=== PATIENT | female | born 1985 | race Caucasian/White ===

== ENCOUNTER 2017-04-05 11:57 | Emergency (ER) | payer MEDICAID ==
[~2017-04-05] VITALS: Ht 162.6 cm; Wt 80.0 kg
[~2017-04-05 11:57] MED LIST: VITAMINS
[2017-04-05 11:59] VITALS: Ht 162.6 cm; Wt 80.0 kg
[2017-04-05] MEDS ORDERED: SOD CHLORIDE 0.9% 500 ML IV STA (12:21)
[2017-04-05] MEDS ORDERED: ACETAMINOPHEN 325 MG TAB PO STA (12:21)
[2017-04-05] MEDS ORDERED: morphine 2 MG INJ IV STA (12:35)
--- NOTE | 2017-04-05 12:37 | ERD ---
ER Documentation Chief Complaint Chief Complaint VAG BLEED ONSET TODAY WITH PELVIC PAIN , 11 WEEKS PREG HPI 31-year-old female, at 11 weeks by LMP 01/07/17, presents to the emergency department complaining of progressive onset of severe dysuria that is started this morning associated with hematuria and urinary frequency. The patient denies abdominal pain, no vaginal bleeding, no fever, no chills. Adequate care at [facility]. ROS A 12-point review of systems was performed and negative other than presented in the history of present illness. SYSTEMIC symptoms: no fever, chills, no night sweats, no weight loss EYE symptoms: No blurred vision, no eye discharge OTOLARYNGEAL symptoms: No hearing loss. No ear pain, no sore throat CARDIOVASCULAR symptoms: No chest pain or discomfort, no palpitations. PULMONARY symptoms: No dyspnea, no cough, no wheezing. GASTROINTESTINAL symptoms: No abdominal pain, no nausea, no vomiting, no diarrhea MUSCULOSKELETAL symptoms: No arthralgias, no muscle aches. NEUROLOGY symptoms: No confusion, no syncope, no numbness or tingling. SKIN: No rashes Medications Home Meds Active Scripts Nitrofurantoin Monohyd Macrocr* (Macrobid*) 100 Mg Capsr, 100 MG PO BID for 7 Days, #14 CAP Prov:MIRTHA GAONA MD 04/05/17 Reported Medications [Vitamins] No Conflict Check 09/29/12 Allergies Allergies: Coded Allergies: No Known Allergies (Verified Allergy, 02/24/13) Uncoded Allergies: NONE (Allergy, 09/29/12) PMhx/Soc History of Surgery: Yes () Anesthesia Reaction: No Hx Neurological Disorder: No Hx Respiratory Disorders: No Hx Cardiac Disorders: No Hx Psychiatric Problems: No Hx Miscellaneous Medical Probl: No Hx Alcohol Use: No Hx Substance Use: No Hx Tobacco Use: No Physical Exam Vitals Vital Signs Date Time Temp Pulse Resp B/P Pulse Ox O2 Delivery O2 Flow Rate FiO2 04/05/17 11:59 99.4 116 18 143/76 98 Physical Exam Patient is in distress due to pain, vital signs consistent with tachycardia and temperature of 99.6. Alert and fully oriented. EYES: PERRLA, EOMI, Sclera and conjunctiva appear normal. EARS: Canals clear, tympanic membranes WNL THROAT: Normal oropharynx. NECK: Supple, No lymphadenopathy. Full ROM without pain or tenderness. HEART: RRR, no rubs, murmurs, clicks or gallops. LUNGS: Clear to auscultation. ABDOMEN: Soft, non-tender without masses or hepatosplenomegaly. No CVA tenderness EXTREMITIES: No edema bilaterally. BACK: Full ROM, no deformity, normal back exam NEURO: Cranial nerves grossly intact, no motor or sensory deficit Result Diagram: 04/05/17 1230 04/05/17 1230 Results 24 hrs Laboratory Tests Test 04/05/17 12:30 04/05/17 12:50 White Blood Count 12.210^3/ul Red Blood Count 4.4110^6/ul Hemoglobin 13.3g/dl Hematocrit 38.3% Mean Corpuscular Volume 86.8fl Mean Corpuscular Hemoglobin 30.2pg Mean Corpuscular Hemoglobin Concent 34.7g/dl Red Cell Distribution Width 13.6% Platelet Count 00147^3/UL Mean Platelet Volume 9.1fl Neutrophils % 78.9% Lymphocytes % 12.0% Monocytes % 7.9% Eosinophils % 0.3% Basophils % 0.5% Nucleated Red Blood Cells % 0.0/100WBC Neutrophils # 9.610^3/ul Lymphocytes # 1.510^3/ul Monocytes # 1.010^3/ul Eosinophils # 0.010^3/ul Basophils # 0.110^3/ul Nucleated Red Blood Cells # 0.010^3/ul Sodium Level 138mmol/L Potassium Level 4.3mmol/L Chloride Level 104mmol/L Carbon Dioxide Level 23mmol/L Anion Gap 15 Blood Urea Nitrogen 8mg/dl Creatinine 0.57mg/dl Glucose Level 99mg/dl Calcium Level 9.3mg/dl Beta HCG, Quantitative 91935.0mIU/ml Urine Color RED Urine Clarity HAZY Urine pH 7.0 Urine Specific [place] 1.020 Urine Ketones TRACEmg/dL Urine Nitrite NEGATIVEmg/dL Urine Bilirubin 1+mg/dL Urine Urobilinogen 1.0 E.U./dLmg/dL Urine Leukocyte Esterase 2+[place]/ul Urine Microscopic RBC >200/HPF Urine Microscopic WBC 5-10/HPF Urine Squamous Epithelial Cells FEW/HPF Urine Bacteria FEW/HPF Urine Hemoglobin 3+mg/dL Urine Glucose NEGATIVEmg/dL Urine Total Protein 2+mg/dl Current Medications Medications (Trade) Dose Ordered Sig/[place] Route PRN Reason Start Time Stop Time Status Last Admin Dose Admin Sodium Chloride (NS) 500 ml @ 500 mls/hr Q1H STAT IV 04/05/17 12:21 04/05/17 13:20 DC 04/05/17 12:41 Acetaminophen (Tylenol Tab) 650 mg ONCE STAT PO 04/05/17 12:21 04/05/17 12:23 DC 04/05/17 12:41 Morphine Sulfate 2 mg 2 mg ONCE STAT IV 04/05/17 12:35 04/05/17 12:36 DC 04/05/17 12:41 Ceftriaxone Sodium (Rocephin) 50 ml @ 100 mls/hr ONCE ONCE IVPB 04/05/17 13:00 04/05/17 13:29 DC 04/05/17 12:41 [place] [id number] Radiology Main Line: [phone] DIAGNOSTIC IMAGING REPORT Patient: SAWYER ALEXIS : 1985 Age: 31 Sex: F MR #: [id number] DOS: 04/05/17 1221 Ordering MD: MIRTHA GAONA MD Location: E Room/Bed: PROCEDURE: First trimester obstetrical ultrasound. CLINICAL INDICATION: , pelvic pain TECHNIQUE: Transabdominal and transvaginal brown scale and color Doppler ultrasound of the uterus of less than 14 weeks gestation (first trimester). COMPARISON: US OB 04/18/2013 FINDINGS: A single intrauterine gestation is present. No evidence of extrauterine gestation. Mean sac diameter: 4.56 cm [place]-rump length: 6.38 cm heart rate: 158 Beats per minute No evidence of subchorionic hemorrhage. Ovaries not visualized. Free fluid: None. IMPRESSION: Single intrauterine gestation with an estimated gestational age of 11 weeks 4 days by ultrasound criteria. RPTAT: AADD .Brayan Trammell MD, MD Date Time Electronically viewed and signed by .Brayan Trammell MD, MD on 04/05/2017 13:46 .B/ CC: MIRTHA GAONA MD Procedures/[facility] 31y/o female patient at approximately 11 weeks per last menstrual period, presents to the ED c/o hematuria, severe dysuria and urinary frequency. Vital signs stable, Physical exam revealed the patient in distress due to pain, abdomen soft, nontender, no peritoneal signs. Differential diagnosis include but not limited to: UTI, threatening , incomplete versus complete , ectopic , physiologic implantation bleeding, molar . Pertinent Data: Labs: CBC: normal, CMP: normal kidney and normal electrolytes. HC,337.0 OB US: Single intrauterine gestation with an estimated gestational age of 11 weeks 4 days by ultrasound criteria. Physical examination and clinical presentation most likely consistent with UTI During the ED course the patient remained hemodynamically stable, she received treatment with Tylenol, morphine, IV fluids and IV Rocephin presenting overall improvement of her symptoms. Results and clinical impression discussed with patient who agrees with management. The patient is stable to be treated outpatient and will be discharged home with close monitoring and follow-up in 2 days with her primary physician. Bed rest and pelvic rest recommended until further medical evaluation. The patient was instructed regarding the outcomes and the potential complications like severe bleeding and . If the patient presents severe bleeding or pain, she was instructed to return to the hospital immediately. Disclaimer: Inadvertent spelling and grammatical errors are likely due to EHR/ dictation software use and do not reflect on the overall quality of patient care. Also, please note that the electronic time recorded on this note does not necessarily reflect the actual time of the patient encounter. Departure Diagnosis: Primary Impression: UTI (urinary tract infection) Additional Impression: Vaginal bleeding in patient at less than 20 weeks gestation Condition: Stable Additional Instructions: Call your primary care doctor TOMORROW for an appointment during the next 1-2 days. See the doctor sooner or return here if your condition worsens before your appointment time. Thank you very much for allowing us to participate in your care. Your health and safety is our top priority at [facility]. Have prescriptions filled and follow precisely the directions on the label. Follow-up with primary care provider during the next 4 days and bring all the information and medications prescribed. If illness has not improved in 2 days, then make an appointment with primary care provider. If the provider is unavailable, return to the Emergency Department immediately. MIRTHA GAONA MD Apr 05, 2017 12:37
[2017-04-05 12:52] LABS: BASOPHIL # 0.1 10^3/ul (0.0-0.1); BASOPHILS % 0.5 % (0.0-2.0); EOSINOPHILS % 0.3 % (0.0-7.0); HEMATOCRIT 38.3 % (37.0-47.0); HEMOGLOBIN 13.3 g/dl (12.0-16.0); LYMPHOCYTES # 1.5 10^3/ul (0.8-2.9); MEAN CORPUSCULAR HEMOGLOBIN 30.2 pg (29.0-33.0); MEAN CORPUSCULAR HGB CONC 34.7 g/dl (32.0-37.0); MEAN CORPUSCULAR VOLUME 86.8 fl (82.0-101.0); MEAN PLATELET VOLUME 9.1 fl (7.4-10.4); MONOCYTES % 7.9 % (0.0-11.0); NEUTROPHIL # 9.6 10^3/ul (1.6-7.5); NEUTROPHILS % 78.9 % (39.0-77.0); PLATELET COUNT 369 10^3/UL (140-415); RED BLOOD COUNT 4.41 10^6/ul (4.20-5.40); RED CELL DISTRIBUTION WIDTH 13.6 % (11.5-14.5); WHITE BLOOD COUNT 12.2 10^3/ul (4.8-10.8)
[2017-04-05] MEDS ORDERED: CEFTRIAXONE 1 GM/50 ML (PMX) 50 ML IVPB ONE (13:00)
[2017-04-05 13:19] LABS: CALCIUM 9.3 mg/dl (8.4-10.2); CREATININE 0.57 mg/dl (0.44-1.00); POTASSIUM 4.3 mmol/L (3.5-5.1)
[2017-04-05 13:33] LABS: UR CLARITY HAZY (CLEAR); UR COLOR RED (YELLOW)
[2017-04-05 13:34] LABS: UR BILIRUBIN (Dip) 1+ mg/dL (NEGATIVE); UR BLOOD (Dip) 3+ mg/dL (NEGATIVE); UR GLUCOSE (Dip) NEGATIVE (NEGATIVE); UR KETONES (Dip) TRACE mg/dL (NEGATIVE); UR NITRITE (Dip) NEGATIVE (NEGATIVE); UR TOTAL PROTEIN (Dip) 2+ mg/dl (NEGATIVE)
[2017-04-05 13:35] LABS: ADD UMIC YES; UR LEUKOCYTE ESTERASE (Dip) 2+ Leu/ul (NEGATIVE); UR UROBILINOGEN (Dip) 1.0 E.U./dL mg/dL (NEGATIVE)
[2017-04-05 13:38] LABS: UR SQUAMOUS EPITHELIAL CELL FEW /HPF (FEW); URINE RBCS >200 /HPF (0)
[2017-04-05 13:40] LABS: UR BACTERIA FEW /HPF (NONE SEEN)
--- NOTE | 2017-04-05 13:47 | RADRPT ---
PROCEDURE: First trimester obstetrical ultrasound. CLINICAL INDICATION: , pelvic pain TECHNIQUE: Transabdominal and transvaginal brown scale and color Doppler ultrasound of the uterus of less than 14 weeks gestation (first trimester). COMPARISON: US OB 04/18/2013 FINDINGS: A single intrauterine gestation is present. No evidence of extrauterine gestation. Mean sac diameter: 4.56 cm [place]-rump length: 6.38 cm heart rate: 158 Beats per minute No evidence of subchorionic hemorrhage. Ovaries not visualized. Free fluid: None. IMPRESSION: Single intrauterine gestation with an estimated gestational age of 11 weeks 4 days by ultrasound cri terjose d. RPTAT: AADD .Brayan Trammell MD, MD Date Time Electronically viewed and signed by .Brayan Trammell MD, on 04/05/2017 13:46 .B/
[2017-04-05] MEDS ORDERED: NITR-58 PO (14:20)
[2017-04-05 14:40] VITALS: BP 138/71; PULSE 81; RESP 18; TEMP 98.7
== END 2017-04-05 14:41 | disposition home or self-care (01) ==
LOC: FTE 11:57
DX: O20.9 Hemorrhage in early pregnancy, unspecified (principal); O23.41 Unspecified infection of urinary tract in pregnancy, first trimester; R10.2 Pelvic and perineal pain; Z3A.11 11 weeks gestation of pregnancy
CPT/HCPCS: 36415; 76801; 80048; 81001; 84702; 85025; 87086; 96374; 96375; J0696; J2270; J7040; Z7502; Z7610

== ENCOUNTER 2017-09-19 16:40 | Inpatient (IN) | END 2017-09-22 14:00 | disposition home or self-care (01) | DRG 766 ==